=== PATIENT | female | born 1960 | race Caucasian/White ===

== ENCOUNTER 2017-09-12 07:11 | Day surgery (SDC) | payer OTHER ==
[~2017-09-12] VITALS: Ht 162.6 cm; Wt 87.5 kg
[~2017-09-12 07:11] MED LIST: ACTOS15 MG PO; AMARYL1 MG PO; COZAAR25 MG PO; CYCLOBENZAPRINE5 MG PO; Cordarone, Pacerone PO; DOXYCYCLINE HY100 MG PO; Ecotrin PO; HYCODAN SYRUP480 ML PO; LEXAPRO20 MG PO; LOSARTAN POTASS25 MG PO; Lopressor PO; OXYCODONE-ACET1 EACH PO; Protonix PO; SIMVASTATIN10 MG PO; XARELTO20 MG PO; Xarelto PO
[2017-09-12 08:12] LABS: POINT-OF-CARE METER ID UU14174212
== END 2017-09-12 08:52 | disposition home or self-care (01) ==
LOC: PAIN 07:11 → SDC 07:30 → PAIN 07:30
PROVIDERS: Anesthesiology Pain Medicine
DX: M47.26 Other spondylosis with radiculopathy, lumbar region (principal); M51.16 Intervertebral disc disorders with radiculopathy, lumbar region; M79.1 Myalgia; I10 Essential (primary) hypertension; G47.33 Obstructive sleep apnea (adult) (pediatric); E11.42 Type 2 diabetes mellitus with diabetic polyneuropathy; I48.91 Unspecified atrial fibrillation; Z88.0 Allergy status to penicillin; M25.78 Osteophyte, vertebrae; Z79.01 Long term (current) use of anticoagulants; Z79.84 Long term (current) use of oral hypoglycemic drugs; Z79.891 Long term (current) use of opiate analgesic
CPT/HCPCS: 82948; J1030; J2250; J3010; S0020

== ENCOUNTER 2017-09-19 10:49 | Day surgery (SDC) | payer OTHER ==
[~2017-09-19] VITALS: Ht 162.6 cm; Wt 87.5 kg
[2017-09-19 11:34] LABS: POINT-OF-CARE METER ID UU14174212
== END 2017-09-19 12:28 | disposition home or self-care (01) ==
LOC: PAIN 10:49 → SDC 11:30 → PAIN 12:28
PROVIDERS: Anesthesiology Pain Medicine
DX: M47.816 Spondylosis without myelopathy or radiculopathy, lumbar region (principal); M54.5 Low back pain; G89.29 Other chronic pain; M51.26 Other intervertebral disc displacement, lumbar region; M51.36 Other intervertebral disc degeneration, lumbar region; G62.9 Polyneuropathy, unspecified; M53.3 Sacrococcygeal disorders, not elsewhere classified; I10 Essential (primary) hypertension; E78.5 Hyperlipidemia, unspecified; K21.9 Gastro-esophageal reflux disease without esophagitis; M79.1 Myalgia; G47.33 Obstructive sleep apnea (adult) (pediatric); E11.65 Type 2 diabetes mellitus with hyperglycemia; Z79.84 Long term (current) use of oral hypoglycemic drugs; Z79.01 Long term (current) use of anticoagulants; Z79.891 Long term (current) use of opiate analgesic; Z88.0 Allergy status to penicillin
CPT/HCPCS: 82948; J1030; J2250; J3010; S0020